=== PATIENT | male | born 1950 | race Caucasian/White ===

== ENCOUNTER 2017-12-06 08:22 | Observation (INO) ==
[2017-12-06] MEDS ORDERED: Aspirin 81 MG TAB.CHEW PO ONE (08:32)
[2017-12-06] MEDS ORDERED: Nitroglycerin 0.4 MG TAB.SUBL SL ONE (08:32)
--- NOTE | 2017-12-06 08:47 | Emergency Department Note ---
Disposition Clinical Impression: Chest pain Qualifiers: Chest pain type: precordial pain Qualified Code(s): R07.2 - Precordial pain Disposition: Admitted As Inpatient Condition: Good Chest Pain HPI - General Chief Complaint: ED General Medical Stated Complaint: Hypertension / Tachycardia Time Seen by Provider: 12/06/17 08:32 Source: patient Mode of arrival: private vehicle Limitations: no limitations Vital Signs Reviewed: Yes Nursing Notes Reviewed: Yes - History of Present Illness Pt complaint: chest pain (Like a belt around my chest that someone keeps tightening) Onset (ago): day(s) (began on Monday) Duration: intermittent Onset: during rest, during exertion Pain Location: substernal Severity: now resolved ("No pain or discomfort now") Severity scale (1-10): 0 Quality: other ("like a belt around my chest") Pain Radiation: none Improves with: rest Worsens with: exertion Context: other (Unknown. Began while walking down the [address] at work on Monday. ) Associated symptoms: Reports: diaphoresis, dyspnea, other (Elevated blood pressure readings several times a day since then, and very fatigued). Denies: nausea, vomiting, sense of impending doom, syncope, palpitations, fever, cough, leg swelling Treatments prior to arrival chest pain: none - Related Data Home Medications Medication Instructions Recorded Confirmed Aspirin 325 mg PO DAILY 05/28/15 12/06/17 Glimepiride [Amaryl] 4 mg PO DAILY 05/28/15 12/06/17 Metformin [Glucophage] 1,000 mg PO BIDWM 05/28/15 12/06/17 Docusate [Colace] 100 mg PO DAILY 06/25/15 12/06/17 Atorvastatin [Lipitor] 40 mg PO HS 06/27/17 12/06/17 Ergocalciferol (VITAMIN D2) 50,000 unit PO TH 06/27/17 12/06/17 [Drisdol (50,000 Unit)] Glucosamn/Condroitn/C/Mn/[place] 1 tab PO DAILY 06/27/17 12/06/17 [Cvs Glucosamine Chondroitin Tb] Losartan Potassium [Cozaar] 50 mg PO DAILY 06/27/17 12/06/17 Mv-Mn/FA/Vit K/Lycop/Lut/Coq10 1 tab PO DAILY 06/27/17 12/06/17 [Daily Multivitamin Capsule] [place]-3/Dha/Epa/Fish Oil [Fish Oil 1 tab PO DAILY 06/27/17 12/06/17 1,000 mg Softgel] Omeprazole [PriLOSEC] 40 mg PO DAILY 06/27/17 12/06/17 Venlafaxine HCl [Venlafaxine HCl 225 mg PO DAILY 06/27/17 12/06/17 ER] clonazePAM [Klonopin] 1 mg PO BID PRN 06/27/17 12/06/17 Allergies Allergy/AdvReac Type Severity Reaction Status Date / Time Penicillins AdvReac Rash Verified 06/27/17 11:30 All systems ED: reviewed and negative except as stated. Review of Systems: As Per HPI Constitutional: Denies: fever, chills, weakness, weight change, night sweats Eyes: Denies: vision change ENT ED: Denies: ear pain, throat pain, congestion, dysphagia Cardiovascular: Reports: as per HPI, chest pain, dyspnea on exertion. Denies: palpitations, orthopnea, edema, syncope, paroxysmal nocturnal dyspnea Respiratory: Reports: as per HPI, dyspnea. Denies: cough, wheezes, hemoptysis, stridor, sputum production Gastrointestinal: Reports: as per HPI. Denies: abdominal pain, nausea, vomiting , diarrhea Musculoskeletal: Denies: back pain, neck pain, arthralgia, myalgia Neurological: Denies: headache, weakness, numbness, paresthesias, confusion, abnormal gait, vertigo Endocrine: Reports: as per HPI, fatigue Hematological/Lymphatic: Denies: easy bleeding, easy bruising Chest Pain PMH - Past Medical History Medical history: Reports: arthritis, cancer (2001 - colon, s/p resection. In remission. scopes last year normal.), diabetes, GERD, hyperlipidemia, other Surgical history: Reports: cataract, colectomy Psychiatric history: Reports: anxiety Prior Cardiac Testing/Procedures: Stress Test, Cardiac Angiogram (10 yrs ago) - Social History Smoking Status: Never smoker Alcohol use: Reports: none Drug use: Reports: none Physical Exam - General Limitations: no limitations General appearance: alert, in no apparent distress - Head Head exam: atraumatic, normocephalic, normal inspection - Eye Eye exam: Present: normal appearance, PERRL. Absent: scleral icterus, conjunctival injection, periorbital swelling - ENT ENT exam: mucous membranes moist - Neck Neck exam: Present: normal inspection, full ROM, trachea midline, tenderness. Absent: meningismus, lymphadenopathy - Chest Chest inspection: Present: normal inspection, symmetric chest wall rise. Absent : tenderness - Respiratory Respiratory exam: Present: normal lung sounds bilaterally. Absent: respiratory distress, wheezes, stridor, accessory muscle use, prolonged expiratory phase - Cardiovascular Cardiovascular exam: Present: regular rate, normal rhythm, normal heart sounds. Absent: systolic murmur, diastolic murmur - Abdominal Exam Abdominal exam: Present: soft, Non-Tender. Absent: mass, pulsatile mass - Extremities Exam Extremities exam: Present: normal inspection, full ROM, normal capillary refill. Absent: pedal edema, calf tenderness - Neurological Exam Neurological exam: Present: alert, oriented X3, CN II-XII intact, normal gait - Psychiatric Psychiatric exam: Present: normal affect, normal mood - Skin Skin exam: Present: warm, dry, intact, normal color Course - Consultations Consultation #1: Pt accepted by the hospitalist Time: 09:58 Vital Signs Temperature 98.0 F 12/06/17 08:24 Pulse Rate 104 12/06/17 08:24 Respiratory Rate 18 12/06/17 08:24 Blood Pressure 178/90 12/06/17 08:24 O2 Sat by Pulse Oximetry 98 12/06/17 08:24 Temperature 97.8 F 12/06/17 17:20 Pulse Rate 75 12/06/17 17:20 Respiratory Rate 16 12/06/17 17:20 Blood Pressure 154/92 12/06/17 17:20 O2 Sat by Pulse Oximetry 96 12/06/17 17:20 Oxygen Delivery Oxygen Delivery Room Air Chest Pain - Medical Records Medical records reviewed: Yes I reviewed the patient's medical records. - Lab Data Lab results reviewed: Yes I reviewed the patient's lab results. Lab results narrative: Laboratory Last Values WBC 5.9 K/mcL (4.3-11.1) 12/06/17 08:39 RBC 4.46 M/mcL (4.19-5.50) 12/06/17 08:39 Hgb 13.3 g/dL (12.9-16.9) 12/06/17 08:39 Hct 41.1 % (37.5-50.1) 12/06/17 08:39 MCV 92.2 fL (83.0-100.0) 12/06/17 08:39 MCH 29.8 pg (28.0-33.3) 12/06/17 08:39 MCHC 32.4 g/dL (31.6-35.5) 12/06/17 08:39 RDW 14.0 % (11.5-14.5) 12/06/17 08:39 Plt Count 227 K/mcL (140-400) 12/06/17 08:39 MPV 9.2 fL (9.4-12.4) L 12/06/17 08:39 Immature Gran % 0.3 % (0-4) 12/06/17 08:39 Seg Neutrophils % 49.1 % 12/06/17 08:39 Lymphocytes % 36.4 % 12/06/17 08:39 Monocytes % 10.5 % 12/06/17 08:39 Eosinophils % 2.9 % 12/06/17 08:39 Basophils % 0.8 % 12/06/17 08:39 Neutrophils # 2.9 K/mcL (1.6-8.9) 12/06/17 08:39 Lymphocytes # 2.2 K/mcL (0.6-4.6) 12/06/17 08:39 Monocytes # 0.6 K/mcL (0.0-1.3) 12/06/17 08:39 Eosinophils # 0.2 K/mcL (0.0-0.6) 12/06/17 08:39 Basophils # 0.1 K/mcL (0.0-0.2) 12/06/17 08:39 Nucleated RBCs/100 WBC 0.5 /100 WBC (0) H 12/06/17 08:39 PT 10.6 Seconds (9.4-12.1) 12/06/17 08:39 INR 1.0 12/06/17 08:39 APTT 29.6 Seconds (26.0-36.0) 12/06/17 08:39 D-Dimer 592 ng/mLFEU (0-500) H 12/06/17 08:39 Sodium 142 mEq/L (136-145) 12/06/17 08:39 Potassium 4.1 mEq/L (3.5-5.1) 12/06/17 08:39 Chloride 104 mEq/L (98-107) 12/06/17 08:39 Carbon Dioxide 30 mEq/L (23-29) H 12/06/17 08:39 BUN 10 mg/dL (8-23) 12/06/17 08:39 Creatinine 0.92 mg/dL (0.70-1.30) 12/06/17 08:39 Est GFR ( Amer) > 60 (> 60) 12/06/17 08:39 Est GFR (Non-Af Amer) > 60 (> 60) 12/06/17 08:39 BUN/Creatinine Ratio 11 (6-26) 12/06/17 08:39 Glucose 147 mg/dL (70-105) H 12/06/17 08:39 Calculated Osmolality 296 (280-300) 12/06/17 08:39 Calcium 9.2 mg/dL (8.6-10.3) 12/06/17 08:39 Total Bilirubin 0.4 mg/dL (0.3-1.0) 12/06/17 08:39 Direct Bilirubin 0.1 mg/dL (0.0-0.2) 12/06/17 08:39 Indirect Bilirubin 0.3 mg/dL (0.0-1.2) 12/06/17 08:39 AST 20 Units/L (13-39) 12/06/17 08:39 ALT 23 Units/L (7-52) 12/06/17 08:39 Alkaline Phosphatase 63 Units/L (34-104) 12/06/17 08:39 Troponin I < 0.03 ng/mL (< 0.04) 12/06/17 08:39 Serum Total Protein 6.6 g/dL (6.4-8.9) 12/06/17 08:39 Albumin 4.1 g/dL (3.5-5.7) 12/06/17 08:39 Globulin 2.5 g/dL (2.4-3.5) 12/06/17 08:39 Albumin/Globulin Ratio 1.6 (1.1-2.2) 12/06/17 08:39 Lipase 64 Units/L (11-82) 12/06/17 08:39 Result diagrams: 12/06/17 08:39 12/06/17 08:39 Lab Results 12/06/17 12/06/17 12/06/17 Range/Units 08:39 08:39 08:39 WBC 5.9 (4.3-11.1) K/mcL RBC 4.46 (4.19-5.50) M/mcL Hgb 13.3 (12.9-16.9) g/dL Hct 41.1 (37.5-50.1) % MCV 92.2 (83.0-100.0) fL MCH 29.8 (28.0-33.3) pg MCHC 32.4 (31.6-35.5) g/dL RDW 14.0 (11.5-14.5) % Plt Count 227 (140-400) K/mcL MPV 9.2 L (9.4-12.4) fL Immature Gran % 0.3 (0-4) % Seg Neutrophils % 49.1 % Lymphocytes % 36.4 % Monocytes % 10.5 % Eosinophils % 2.9 % Basophils % 0.8 % Neutrophils # 2.9 (1.6-8.9) K/mcL Lymphocytes # 2.2 (0.6-4.6) K/mcL Monocytes # 0.6 (0.0-1.3) K/mcL Eosinophils # 0.2 (0.0-0.6) K/mcL Basophils # 0.1 (0.0-0.2) K/mcL Nucleated RBCs/100 WBC 0.5 H (0) /100 WBC PT 10.6 (9.4-12.1) Seconds INR 1.0 APTT 29.6 (26.0-36.0) Seconds D-Dimer 592 H (0-500) ng/mLFEU Sodium (136-145) mEq/L Potassium (3.5-5.1) mEq/L Chloride (98-107) mEq/L Carbon Dioxide (23-29) mEq/L BUN (8-23) mg/dL Creatinine (0.70-1.30) mg/dL Est GFR ( Amer) (> 60) Est GFR (Non-Af Amer) (> 60) BUN/Creatinine Ratio (6-26) Glucose (70-105) mg/dL Calculated Osmolality (280-300) Calcium (8.6-10.3) mg/dL Total Bilirubin (0.3-1.0) mg/dL Direct Bilirubin (0.0-0.2) mg/dL Indirect Bilirubin (0.0-1.2) mg/dL AST (13-39) Units/L ALT (7-52) Units/L Alkaline Phosphatase (34-104) Units/L Troponin I (< 0.04) ng/mL B-Natriuretic Peptide 9 (Less than 100) pg/mL Serum Total Protein (6.4-8.9) g/dL Albumin (3.5-5.7) g/dL Globulin (2.4-3.5) g/dL Albumin/Globulin Ratio (1.1-2.2) Lipase (11-82) Units/L // Range/Units 08:39 WBC (4.3-11.1) K/mcL RBC (4.19-5.50) M/mcL Hgb (12.9-16.9) g/dL Hct (37.5-50.1) % MCV (83.0-100.0) fL MCH (28.0-33.3) pg MCHC (31.6-35.5) g/dL RDW (11.5-14.5) % Plt Count (140-400) K/mcL MPV (9.4-12.4) fL Immature Gran % (0-4) % Seg Neutrophils % % Lymphocytes % % Monocytes % % Eosinophils % % Basophils % % Neutrophils # (1.6-8.9) K/mcL Lymphocytes # (0.6-4.6) K/mcL Monocytes # (0.0-1.3) K/mcL Eosinophils # (0.0-0.6) K/mcL Basophils # (0.0-0.2) K/mcL Nucleated RBCs/100 WBC (0) /100 WBC PT (9.4-12.1) Seconds INR APTT (26.0-36.0) Seconds D-Dimer (0-500) ng/mLFEU Sodium 142 (136-145) mEq/L Potassium 4.1 (3.5-5.1) mEq/L Chloride 104 (98-107) mEq/L Carbon Dioxide 30 H (23-29) mEq/L BUN 10 (8-23) mg/dL Creatinine 0.92 (0.70-1.30) mg/dL Est GFR ( Amer) > 60 (> 60) Est GFR (Non-Af Amer) > 60 (> 60) BUN/Creatinine Ratio 11 (6-26) Glucose 147 H (70-105) mg/dL Calculated Osmolality 296 (280-300) Calcium 9.2 (8.6-10.3) mg/dL Total Bilirubin 0.4 (0.3-1.0) mg/dL Direct Bilirubin 0.1 (0.0-0.2) mg/dL Indirect Bilirubin 0.3 (0.0-1.2) mg/dL AST 20 (13-39) Units/L ALT 23 (7-52) Units/L Alkaline Phosphatase 63 (34-104) Units/L Troponin I < 0.03 (< 0.04) ng/mL B-Natriuretic Peptide (Less than 100) pg/mL Serum Total Protein 6.6 (6.4-8.9) g/dL Albumin 4.1 (3.5-5.7) g/dL Globulin 2.5 (2.4-3.5) g/dL Albumin/Globulin Ratio 1.6 (1.1-2.2) Lipase 64 (11-82) Units/L - Radiology Data Radiology results reviewed: Yes I reviewed the patient's radiology results. Chest X-Ray 12/06/17 08:32 IMPRESSION: No acute process. D/ / Juan David Gallo MD / Juan David Gallo MD Interpreting Provider: Juan David Gallo MD - EKG Data EKG attestation: Yes I reviewed and interpreted this EKG. EKG shows normal: sinus rhythm Rate: normal Rhythm: NSR [place]/QRS: RBBB When compared to previous EKG there are: no significant changes Interpretation: unchanged when compared to prior tracing (date) - Core Measures AMI Core Measures Followed: Yes Heart Score - Score History: Highly Suspicious EKG: Non Specific repolarisation Disturbance Age: Greater than 65 Risk Factors: Equal/Greater than 3 risk factor or history of atherosclerotic disease Troponin: 1-3x normal limit HEART Score Total: 8 Attestation Statement - Attestation Attestation: Taz Nava DO have provided [id number]-nomo time during the care of this patient. Detailed review the presentation, symptoms, medical history were discussed and reviewed with the mid-level provider Apurva Osborne PA-C/COUNTER CONTROL OPERATOR. Medical intervention labs and imaging studies were reviewed in detail. See full documentation of physical exam and course of care in the mid-level provider 's note. I agree with the determined course of care, medical intervention and disposition put forth by the mid-level provider. See below documentation for changes or alterations in documentation.
[2017-12-06 09:00] LABS: Basophils # 0.1 K/mcL (0.0-0.2); Basophils % 0.8 %; Eosinophils # 0.2 K/mcL (0.0-0.6); Eosinophils % 2.9 %; Hematocrit 41.1 % (37.5-50.1); Hemoglobin 13.3 g/dL (12.9-16.9); Immature Granulocytes % 0.3 % (0-4); Lymphocytes # 2.2 K/mcL (0.6-4.6); Lymphocytes % 36.4 %; Mean Corpuscular HGB Conc 32.4 g/dL (31.6-35.5); Mean Corpuscular Hemoglobin 29.8 pg (28.0-33.3); Mean Corpuscular Volume 92.2 fL (83.0-100.0); Mean Platelet Volume 9.2 fL (9.4-12.4); Monocytes # 0.6 K/mcL (0.0-1.3); Monocytes % 10.5 %; Neutrophils # 2.9 K/mcL (1.6-8.9); Nucleated Red Blood Cells 0.5 /100 WBC (0); Platelet Count 227 K/mcL (140-400); Red Blood Count 4.46 M/mcL (4.19-5.50); Segmented Neutrophils % 49.1 %
[2017-12-06 09:04] LABS: Prothrombin Time 10.6 Seconds (9.4-12.1)
[2017-12-06 09:07] LABS: Activated Partial Thrombo Time 29.6 Seconds (26.0-36.0)
--- NOTE | 2017-12-06 09:11 | Emergency Department Note ---
Disposition Clinical Impression: Chest pain Qualifiers: Chest pain type: precordial pain Qualified Code(s): R07.2 - Precordial pain Disposition: Admitted As Inpatient Condition: Good Referrals: Sarkis Luna MD [Primary Care Provider] - Forms: ED Satisfaction Letter, Work/School Release Time of Disposition: 10:00 General Adult HPI - General Chief complaint: ED General Medical Stated complaint: Hypertension / Tachycardia Time Seen by Provider: 12/06/17 08:32 Source: patient Limitations: no limitations - History of Present Illness Pain Scale: 0 - Related Data Home Medications Medication Instructions Recorded Confirmed Aspirin 325 mg PO DAILY 05/28/15 12/06/17 Glimepiride [Amaryl] 4 mg PO DAILY 05/28/15 12/06/17 Metformin [Glucophage] 1,000 mg PO BIDWM 05/28/15 12/06/17 Docusate [Colace] 100 mg PO DAILY 06/25/15 12/06/17 Atorvastatin [Lipitor] 40 mg PO HS 06/27/17 12/06/17 Ergocalciferol (VITAMIN D2) 50,000 unit PO TH 06/27/17 12/06/17 [Drisdol (50,000 Unit)] Glucosamn/Condroitn/C/Mn/[place] 1 tab PO DAILY 06/27/17 12/06/17 [Cvs Glucosamine Chondroitin Tb] Losartan Potassium [Cozaar] 50 mg PO DAILY 06/27/17 12/06/17 Mv-Mn/FA/Vit K/Lycop/Lut/Coq10 1 tab PO DAILY 06/27/17 12/06/17 [Daily Multivitamin Capsule] [place]-3/Dha/Epa/Fish Oil [Fish Oil 1 tab PO DAILY 06/27/17 12/06/17 1,000 mg Softgel] Omeprazole [PriLOSEC] 40 mg PO DAILY 06/27/17 12/06/17 Venlafaxine HCl [Venlafaxine HCl 225 mg PO DAILY 06/27/17 12/06/17 ER] clonazePAM [Klonopin] 1 mg PO BID PRN 06/27/17 12/06/17 Allergies Allergy/AdvReac Type Severity Reaction Status Date / Time Penicillins AdvReac Rash Verified 06/27/17 11:30 Past Medical History - Past Medical History Medical history: Reports: arthritis, cancer, diabetes, GERD, hyperlipidemia, other Surgical history: Reports: cataract, colectomy Psychiatric history: Reports: anxiety - Social History Smoking Status: Never smoker Smokeless Tobacco Status: No Alcohol use: Reports: none Drug use: Reports: none Physical Exam - General Limitations: no limitations General appearance: alert, in no apparent distress Course Vital Signs Temperature 98.0 F 12/06/17 08:24 Pulse Rate 104 12/06/17 08:24 Respiratory Rate 18 12/06/17 08:24 Blood Pressure 178/90 12/06/17 08:24 O2 Sat by Pulse Oximetry 98 12/06/17 08:24 Temperature 98.0 F 12/06/17 08:24 Pulse Rate 104 12/06/17 08:24 Respiratory Rate 18 12/06/17 08:24 Blood Pressure 178/90 12/06/17 08:24 O2 Sat by Pulse Oximetry 98 12/06/17 08:24 Oxygen Delivery Oxygen Delivery Room Air Medical Decision Making - Lab Data Result diagrams: 12/06/17 08:39 12/06/17 08:39 Lab Results 12/06/17 12/06/17 12/06/17 Range/Units 08:39 08:39 08:39 WBC 5.9 (4.3-11.1) K/mcL RBC 4.46 (4.19-5.50) M/mcL Hgb 13.3 (12.9-16.9) g/dL Hct 41.1 (37.5-50.1) % MCV 92.2 (83.0-100.0) fL MCH 29.8 (28.0-33.3) pg MCHC 32.4 (31.6-35.5) g/dL RDW 14.0 (11.5-14.5) % Plt Count 227 (140-400) K/mcL MPV 9.2 L (9.4-12.4) fL Immature Gran % 0.3 (0-4) % Seg Neutrophils % 49.1 % Lymphocytes % 36.4 % Monocytes % 10.5 % Eosinophils % 2.9 % Basophils % 0.8 % Neutrophils # 2.9 (1.6-8.9) K/mcL Lymphocytes # 2.2 (0.6-4.6) K/mcL Monocytes # 0.6 (0.0-1.3) K/mcL Eosinophils # 0.2 (0.0-0.6) K/mcL Basophils # 0.1 (0.0-0.2) K/mcL Nucleated RBCs/100 WBC 0.5 H (0) /100 WBC PT 10.6 (9.4-12.1) Seconds INR 1.0 APTT 29.6 (26.0-36.0) Seconds D-Dimer 592 H (0-500) ng/mLFEU Sodium (136-145) mEq/L Potassium (3.5-5.1) mEq/L Chloride (98-107) mEq/L Carbon Dioxide (23-29) mEq/L BUN (8-23) mg/dL Creatinine (0.70-1.30) mg/dL Est GFR ( Amer) (> 60) Est GFR (Non-Af Amer) (> 60) BUN/Creatinine Ratio (6-26) Glucose (70-105) mg/dL Calculated Osmolality (280-300) Calcium (8.6-10.3) mg/dL Total Bilirubin (0.3-1.0) mg/dL Direct Bilirubin (0.0-0.2) mg/dL Indirect Bilirubin (0.0-1.2) mg/dL AST (13-39) Units/L ALT (7-52) Units/L Alkaline Phosphatase (34-104) Units/L Troponin I (< 0.04) ng/mL B-Natriuretic Peptide 9 (Less than 100) pg/mL Serum Total Protein (6.4-8.9) g/dL Albumin (3.5-5.7) g/dL Globulin (2.4-3.5) g/dL Albumin/Globulin Ratio (1.1-2.2) Lipase (11-82) Units/L 12/06/ Range/Units 08:39 WBC (4.3-11.1) K/mcL RBC (4.19-5.50) M/mcL Hgb (12.9-16.9) g/dL Hct (37.5-50.1) % MCV (83.0-100.0) fL MCH (28.0-33.3) pg MCHC (31.6-35.5) g/dL RDW (11.5-14.5) % Plt Count (140-400) K/mcL MPV (9.4-12.4) fL Immature Gran % (0-4) % Seg Neutrophils % % Lymphocytes % % Monocytes % % Eosinophils % % Basophils % % Neutrophils # (1.6-8.9) K/mcL Lymphocytes # (0.6-4.6) K/mcL Monocytes # (0.0-1.3) K/mcL Eosinophils # (0.0-0.6) K/mcL Basophils # (0.0-0.2) K/mcL Nucleated RBCs/100 WBC (0) /100 WBC PT (9.4-12.1) Seconds INR APTT (26.0-36.0) Seconds D-Dimer (0-500) ng/mLFEU Sodium 142 (136-145) mEq/L Potassium 4.1 (3.5-5.1) mEq/L Chloride 104 (98-107) mEq/L Carbon Dioxide 30 H (23-29) mEq/L BUN 10 (8-23) mg/dL Creatinine 0.92 (0.70-1.30) mg/dL Est GFR ( Amer) > 60 (> 60) Est GFR (Non-Af Amer) > 60 (> 60) BUN/Creatinine Ratio 11 (6-26) Glucose 147 H (70-105) mg/dL Calculated Osmolality 296 (280-300) Calcium 9.2 (8.6-10.3) mg/dL Total Bilirubin 0.4 (0.3-1.0) mg/dL Direct Bilirubin 0.1 (0.0-0.2) mg/dL Indirect Bilirubin 0.3 (0.0-1.2) mg/dL AST 20 (13-39) Units/L ALT 23 (7-52) Units/L Alkaline Phosphatase 63 (34-104) Units/L Troponin I < 0.03 (< 0.04) ng/mL B-Natriuretic Peptide (Less than 100) pg/mL Serum Total Protein 6.6 (6.4-8.9) g/dL Albumin 4.1 (3.5-5.7) g/dL Globulin 2.5 (2.4-3.5) g/dL Albumin/Globulin Ratio 1.6 (1.1-2.2) Lipase 64 (11-82) Units/L Attestation Statement - Attestation Attestation: I, Taz Olivia DO have provided Aieg-je-qeld time during the care of this patient. Detailed review the presentation, symptoms, medical history were discussed and reviewed with the mid-level provider Apurva Osborne PA-C/MILVIA. Medical intervention labs and imaging studies were reviewed in detail. See full documentation of physical exam and course of care in the mid-level provider 's note. I agree with the determined course of care, medical intervention and disposition put forth by the mid-level provider. See below documentation for changes or alterations in documentation. 67-year-old male presents to the emergency room with complaint of chest tightness and pain. He has noticed palpitations no lid blood pressure over the last several days. He has felt like there is been a belt around his chest pulling tight. He denies any history of pulmonary related illness or disease. He denies any cough, congestion fevers or chills. Currently his only complaint is a chest tightness but no chest pain. Patient denies any fevers chills nausea vomiting diarrhea headache or vision change. His main complaint was a concern secondary to the elevated blood pressure in the tachycardia. Patient's heart rate was initially 104. Blood pressure was elevated at 178. Patient is still having the tightness. 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 He has had angiography in the past that did not show any stenosis. Patient is concerning for cardiac related presentation. Nitroglycerin and aspirin will be given here as well as screening evaluation with CBC chemistry troponin EKG and labs. Initial EKG does show chronic right bundle max block with no acute signs of ST segment elevation or abnormality. This information was reviewed and discussed with the mid-level provider. They will complete the initial treatment course and care and then discuss disposition admission. This information was discussed with the patient by myself and he also understands this is comfortable being admitted once full workup and treatment course are completed. Lab workup to be completed this time. Symptomatically control will be completed and admission process to be established. Initial EKG does not show any acute signs of diagnostic ST segment elevation abnormality or concern for ST segment elevation myocardial infarction. Patient is otherwise stable. Disposition pending evaluation treatment course. See detailed documentation of the physical exam, medical intervention, medical decision-making and disposition in the mid-level provider's note. No critical care applied to this patient's treatment course at this time. [id number] Patient's chest tightness did not resolve with nitroglycerin. Pain medication will be given by mouth for this time. Patient's d-dimer is 592. His heart rate is still elevated slightly at 104. Patient's well's score is indeterminate this time because of his presentation symptoms of discussion was had with the hospitalist for admission but CT angiography. We will order this and transition to the floor. Patient is otherwise no distress admitted for hypertension tachycardia and acute coronary syndrome rule out at this point. Patient will not be started on anticoagulation at this point. Patient is on metformin this medication will be recommended to hold at this point. Disposition will be admission for further workup and treatment course. CT angiography to be completed either here in the emergency room or and transition to the floor. Patient does not appear to be in any distress at this point. We will continue to monitor here in the emergency room until admission process is completed
[2017-12-06 09:15] LABS: Troponin I < 0.03 ng/mL (< 0.04)
[2017-12-06 09:22] LABS: Alanine Aminotransferase 23 Units/L (7-52); Albumin 4.1 g/dL (3.5-5.7); Albumin/Globulin Ratio 1.6 (1.1-2.2); Alkaline Phosphatase 63 Units/L (34-104); Aspartate Amino Transferase 20 Units/L (13-39); BUN/Creatinine Ratio 11 (6-26); Bilirubin,Direct 0.1 mg/dL (0.0-0.2); Bilirubin,Indirect 0.3 mg/dL (0.0-1.2); Bilirubin,Total 0.4 mg/dL (0.3-1.0); Blood Urea Nitrogen 10 mg/dL (8-23); Calcium 9.2 mg/dL (8.6-10.3); Carbon Dioxide 30 mEq/L (23-29); Chloride 104 mEq/L (98-107); Globulin 2.5 g/dL (2.4-3.5); Glucose 147 mg/dL (70-105); Lipase 64 Units/L (11-82); Osmolality,Calculated 296 (280-300); Potassium 4.1 mEq/L (3.5-5.1); Sodium 142 mEq/L (136-145); Total Protein 6.6 g/dL (6.4-8.9); eGFR For African Americans > 60 (> 60); eGFR For Non-African Americans > 60 (> 60)
[2017-12-06] MEDS ORDERED: *HR* Morphine 2 MG/ML SYRINGE IVP ONE (09:57)
[2017-12-06] MEDS ORDERED: Ondansetron 4 MG/2 ML VIAL IVP ONE (09:57)
[2017-12-06] MEDS ORDERED: Isovue-370 500 ML INFUS..BTL IV ONE (09:59)
[2017-12-06] MEDS ORDERED: Acetaminophen 325 MG TABLET PO PRN (14:21)
[2017-12-06] MEDS ORDERED: Naloxone 0.4 MG/ML INJ IVP PRN (14:21)
[2017-12-06] MEDS ORDERED: *HR* HYDROcodone/Acet 5/325 mg TABLET PO PRN (14:21)
[2017-12-06] MEDS ORDERED: clonazePAM 1 MG TABLET PO PRN (14:28)
[2017-12-06] MEDS ORDERED: D5% in Water 1,000 ML IVC PRN (14:32)
[2017-12-06] MEDS ORDERED: Dextrose Gel 15 GM/37.5 ML TUBE PO PRN ×2 (14:32)
[2017-12-06] MEDS ORDERED: *HR* Dextrose 50 % in Water (Syg) 50 ML SYRINGE IVP PRN (14:32)
[2017-12-06] MEDS ORDERED: Ondansetron 4 MG/2 ML VIAL IVP PRN (14:35)
[2017-12-06] MEDS ORDERED: Nitroglycerin 0.4 MG TAB.SUBL SL PRN (14:39)
--- NOTE | 2017-12-06 15:19 | Internal Med History&Physical ---
<YumikoAmos - Last Filed: 12/06/17 15:55> Date of Encounter: 12/06/17 Time of Encounter: 14:00 Internal Medicine - H&P: HPI Chief complaint: CP Admitted From: Emergency Dept Plans for Post Hospital Care: Home History of present illness: Mr. Mackay is a 67 year old male w/PMH of arthritis, colon cancer in 2001 which is now in remission, diabetes controlled with oral anti-hyperglycemics, GERD, and HLD presents from the ED with chief complaint of chest pain that began on Monday while he was at work. Patient reports walking and becoming flushed, diaphoretic, and nauseous with intense centralized chest pressure and pain in left hand with shortness of breath. Reports BP was 194/106 at the time. No alleviating or aggravating factors. 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 Patient denies recent illness, fever, chills, nausea, vomiting, changes in vision, headache, unusual bleeding, abdominal pain , numbness, tingling, or syncope. Past Med Surg Social Fam HX - Past Medical History Source: patient, old records reviewed, obtained from family Medical history: arthritis, cancer (Colon in 2001 now in remission), diabetes, GERD, hyperlipidemia, other Psychiatric history: anxiety - Past Surgical History Surgical History: cataract (Right eye), colectomy - Social History Smoking Status: Never smoker Smokeless Tobacco Status: No Alcohol use: none Drug use: none Occupational status: employed Current living situation: Home, With Family Activity Level: Independent ambulation Recent Out of Country Travel Within the Last 8 Weeks: No Exposure or Possible Exposure to Illness During Travel: No - Family History Father Adopted: No Race: Family Member Ethnicity: Non- Living Status: Age at : 82 Cause of : Prostate cancer Hx Family Cardiac Disorders: Yes (NM x2 (age 62 and mid 70s), AAA / CHF) Hx Family Respiratory Disorders: Yes (VILLARREAL chronic, progressive) Hx Family Cancer: Yes (Prostate) Hx Family GI Disorders: Yes (Hernias, GERD) Mother Race: Family Member Ethnicity: Non- Living Status: Age at : 92 Cause of : Colon cancer Hx Family Cardiac Disorders: Yes (PAD, CVA) Hx Family Cancer: Yes (Colon) Hx Family Endocrine Disorder: Yes (DM) Internal Medicine - H&P: Meds Aspirin 325 mg PO DAILY 05/28/15 [History] Glimepiride [Amaryl] 4 mg PO DAILY 05/28/15 [History] Metformin [Glucophage] 1,000 mg PO BIDWM 05/28/15 [History] Docusate [Colace] 100 mg PO DAILY 06/25/15 [History] Atorvastatin [Lipitor] 40 mg PO HS 06/27/17 [History] Ergocalciferol (VITAMIN D2) [Drisdol (50,000 Unit)] 50,000 unit PO TH 06/27/17 [ History] Glucosamn/Condroitn/C/Mn/[place] [[facility] Glucosamine Chondroitin Tb] 1 tab PO DAILY 06/27/17 [History] Losartan Potassium [Cozaar] 50 mg PO DAILY 06/27/17 [History] Mv-Mn/FA/Vit K/Lycop/Lut/Coq10 [Daily Multivitamin Capsule] 1 tab PO DAILY 06/27 [History] [place]-3/Dha/Epa/Fish Oil [Fish Oil 1,000 mg Softgel] 1 tab PO DAILY 06/27/17 [ History] Omeprazole [PriLOSEC] 40 mg PO DAILY 06/27/17 [History] Venlafaxine HCl [Venlafaxine HCl ER] 225 mg PO DAILY 06/27/17 [History] clonazePAM [Klonopin] 1 mg PO BID PRN 06/27/17 [History] 3 Allergy/AdvReac Type Severity Reaction Status Date / Time Penicillins AdvReac Rash Verified 06/27/17 11:30 All Systems PM: A 10-system review of systems was performed and is negative for pertinent findings except as documented above in the HPI. - Constitutional Constitutional: no chills, no fever(s), no night sweats - EENT Eyes: no change in vision, no discharge, no pain, no photophobia Ears: no ear discharge, no ear pain, no tinnitus Nose, mouth and throat: no dysphagia, no nasal discharge, no neck pain, no sore throat - Breasts Breasts: as per HPI - Cardiovascular Cardiovascular ROS IM: as per HPI, diaphoresis, dyspnea, dyspnea on exertion, lightheadedness, no palpitations, no syncope - Respiratory Respiratory: dyspnea, dyspnea on exertion, no cough, no wheezing, no excessive phlegm production - Gastrointestinal Gastrointestinal: no abdominal pain, no diarrhea, no hematemesis, no hematochezia, no melena, no nausea, no vomiting - Genitourinary Genitourinary ROS male: as per HPI - Musculoskeletal Musculoskeletal ROS IM: no numbness, no tingling - Integumentary Integumentary IM: no rash, no unusual bruising - Neurological Neurological ROS: as per HPI, dizziness, no confusion, no convulsions, no focal weakness, no numbness, no tingling, no tremor(s) - Psychiatric Psychiatric: as per HPI, anxiety - Endocrine Endocrine IM: as per HPI - Hematologic/Lymphatic Hematologic/Lymphatic: no easy bruising - Allergic/Immunologic Allergic/Immunologic: as per HPI - Constitutional Vitals: Temp Pulse Resp BP Pulse Ox 97.8 F 89 16 149/94 97 12/06/17 12:44 12/06/17 12:44 12/06/17 12:44 12/06/17 12:44 12/06/17 12:44 General appearance: Present: cooperative, A&O X 3, pleasant, no acute distress, obese, answers questions appropriately - Head Head exam: Present: atraumatic, normocephalic - Eye Eye exam: Present: PERRL, conjuntiva pink, sclera anicteric Pupils: Present: PERRL - ENT ENT exam: Present: normal exam - Neck Neck exam general surgery: Present: normal inspection, supple, trachea midline. Absent: lymphadenopathy - Respiratory Respiratory exam: Present: CTAB. Absent: accessory muscle use, rales, rhonchi, wheezes - Cardiovascular Cardiovascular exam: Present: RRR, +S1, +S2. Absent: diastolic murmur, gallop, rubs, systolic murmur - GI/Abdominal GI/Abdominal exam: Present: normal bowel sounds, soft, no peritoneal signs. Absent: distended, tenderness - Rectal Rectal exam: Present: deferred - Additional comments: exam deferred. - Extremities Exam Extremities exam: Present: warm, radial pulses palpable and symmetrical. Absent : calf tenderness, cyanotic, pedal edema - Back Exam Back exam: Present: normal inspection - Neurological Exam Neurological exam: Present: CN II-XII intact, oriented X3, no focal deficits. Absent: pronater drift, facial droop, speech deficit - Psychiatric Psychiatric exam: Present: normal affect, normal mood - Skin Skin exam: Present: dry, intact Internal Med - H&P Results - Labs CBC & Chem 7: 12/06/17 08:39 12/06/17 08:39 - EKG Data EKG shows normal: sinus rhythm - EKG Data Prior EKG available for review: no EKG comments: 12/06/17 15:26 EKG dated 12/06/17 shows sinus rhythm with right bundle branch block. - Diagnostic Studies Chest x-ray Additional comments: Impressions Chest X-Ray 12/06/17 08:32 IMPRESSION: No acute process. D/ / Juan David Gallo MD / Juan David Gallo MD Interpreting Provider: Juan David Gallo MD Other Images Additional comments: Impressions Chest CTA 12/06/17 09:59 IMPRESSION: No evidence of pulmonary embolism or acute pulmonary abnormality. D/ / Adams Hermosillo MD / Adams Hermosillo MD Interpreting Provider: Adams Hermosillo MD - Assessment and plan (1) Chest pain Current Visit: Yes Status: Acute Assessment and plan: Acute CP that began Monday w/ flushing, diaphoresis, and nausea with pain in left hand and intense chest pressure. 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 No stents. Continue aspirin daily. Lipitor 80 mg now and 40 mg daily tomorrow. Nitro SL PRN. Continuous cardiac telemetry. Echocardiogram. NPO at midnight for a.m. nuclear pharm stress test. Initial troponin <0.03. Will trend. Cardiology consult ordered and discussed w/Dr. Cole d/t pts. cardiac anomaly and I appreciate the consult. Pt. discussed w/Dr. Hernandez who agrees w/plan of care. Pt. is high risk for cardiac event and further morbidity d/t current sx, previous sx ; cardiac anomaly, and risk factors of familial hx of cardiac problems (father: NM x2 and mother: PAD and CVAs), DM, HLD, and obesity. Observation. Qualifiers: Chest pain type: precordial pain Qualified Code(s): R07.2 - Precordial pain (2) Dyspnea Current Visit: Yes Status: Acute Assessment and plan: Acute SOB accompanying CP. Denies home O2 use or hx of respiratory problems. Supplemental O2 w/titration and SpO2 monitoring PRN. Qualifiers: Dyspnea type: shortness of breath Qualified Code(s): R06.02 - Shortness of breath; R06.00 - Dyspnea, unspecified; R06.01 - Orthopnea (3) Dizziness Current Visit: Yes Status: Acute Assessment and plan: Acute dizziness reported w/positional changes. Orthostatic BPs/VS. Bilateral carotid Doppler imaging. Falls/safety precautions, up with assist, bed rest w/ bathroom privileges w/assist only. (4) Diabetes Current Visit: Yes Status: Chronic Assessment and plan: Hx of chronic diabetes controlled w/oral antihyperglycemic medications. Hold oral medications and administer low-dose correction insulin sliding scale w/ hypoglycemic protocol. A1C in a.m. labs. BG checks ACHS. Qualifiers: Diabetes mellitus type: type 2 Diabetes mellitus skilled nursing insulin use: without skilled nursing use Diabetes mellitus complication status: with unspecified complications Qualified Code(s): E11.8 - Type 2 diabetes mellitus with unspecified complications (5) GERD (gastroesophageal reflux disease) Current Visit: Yes Status: Chronic Assessment and plan: Hx of chronic GERD. Zofran IVP 4 mg Q6HR PRN for N/V. Continue pts. Prilosec. Qualifiers: Esophagitis presence: esophagitis presence not specified Qualified Code(s) : K21.9 - Gastro-esophageal reflux disease without esophagitis (6) HLD (hyperlipidemia) Current Visit: Yes Status: Chronic Assessment and plan: Hx of chronic HLD. Lipid panel in a.m. labs. Continue pts. Lipitor. Qualifiers: Hyperlipidemia type: pure hypercholesterolemia Qualified Code(s): E78.00 - Pure hypercholesterolemia, unspecified; E78.0 - Pure hypercholesterolemia (7) Constipation Current Visit: Yes Status: Chronic Assessment and plan: Hx of chronic constipation. Pt. reports no BM for up to 5 days. Continue Colace and add Miralax daily. Monitor I&O. Qualifiers: Constipation type: unspecified constipation type Qualified Code(s): K59.00 - Constipation, unspecified (8) Anxiety Current Visit: Yes Status: Chronic Assessment and plan: Hx of chronic anxiety. Continue patient's venlafaxine and Klonopin. (9) DVT prophylaxis Current Visit: Yes Status: Acute Assessment and plan: Heparin 5000 units subcutaneous every 8 for DVT prophylaxis. Monitor patient for signs of bleeding. (10) HTN (hypertension) Current Visit: Yes Status: Acute Assessment and plan: Acute HTN accompanying current CP sx. Pt. reports BP usually 130s to 140s systolically. 194/106 on Monday when sx began. Continue pts. Cozaar. Will add hydralazine w/parameters if needed. Qualifiers: Hypertension type: other secondary hypertension Qualified Code(s): I15.8 - Other secondary hypertension - Time Spent With Patient Total time spent is greater than 50% in coordination of care (as documented) at patient's floor/unit and/or counseling patient: 25 - 35 minutes <Cele Hernandez - Last Filed: 12/06/17 16:21> Date of Encounter: 12/06/17 Internal Medicine - H&P: HPI History of present illness: Mr. Mackay is a 67 year old male All Systems PM: A 10-system review of systems was performed and is negative for pertinent findings except as documented above in the HPI. - Constitutional Vitals: Temp Pulse Resp BP Pulse Ox 97.8 F 89 16 149/94 97 12/06/17 12:44 12/06/17 12:44 12/06/17 12:44 12/06/17 12:44 12/06/17 12:44 Internal Med - H&P Results - Labs CBC & Chem 7: 12/06/17 08:39 12/06/17 08:39 Labs: Cardiac Enzymes 12/06/17 Range/Units 15:09 Troponin I < 0.03 (< 0.04) ng/mL - Attending Attestation Examined the patient. Reviewed the note and agreed with plan of care. Raised d -dimer but CTA with no acute PE. Cardiac ischemic workup ordered. Consulted lawn service supervisor. At present patient is chest pain-free. - Assessment and plan (1) Dyspnea Current Visit: Yes Status: Acute Qualifiers: Dyspnea type: shortness of breath Qualified Code(s): R06.02 - Shortness of breath; R06.00 - Dyspnea, unspecified; R06.01 - Orthopnea (2) Chest pain Current Visit: Yes Status: Acute Qualifiers: Chest pain type: precordial pain Qualified Code(s): R07.2 - Precordial pain (3) Diabetes Current Visit: Yes Status: Chronic Qualifiers: Diabetes mellitus type: type 2 Diabetes mellitus principal bioinformatics specialist insulin use: without principal bioinformatics specialist use Diabetes mellitus complication status: with unspecified complications Qualified Code(s): E11.8 - Type 2 diabetes mellitus with unspecified complications (4) GERD (gastroesophageal reflux disease) Current Visit: Yes Status: Chronic Qualifiers: Esophagitis presence: esophagitis presence not specified Qualified Code(s) : K21.9 - Gastro-esophageal reflux disease without esophagitis (5) HLD (hyperlipidemia) Current Visit: Yes Status: Chronic Qualifiers: Hyperlipidemia type: pure hypercholesterolemia Qualified Code(s): E78.00 - Pure hypercholesterolemia, unspecified; E78.0 - Pure hypercholesterolemia (6) Dizziness Current Visit: Yes Status: Acute (7) Constipation Current Visit: Yes Status: Chronic Qualifiers: Constipation type: unspecified constipation type Qualified Code(s): K59.00 - Constipation, unspecified (8) Anxiety Current Visit: Yes Status: Chronic (9) DVT prophylaxis Current Visit: Yes Status: Acute (10) HTN (hypertension) Current Visit: Yes Status: Acute Qualifiers: Hypertension type: other secondary hypertension Qualified Code(s): I15.8 - Other secondary hypertension - Time Spent With Patient Total time spent is greater than 50% in coordination of care (as documented) at patient's floor/unit and/or counseling patient:
[2017-12-06] MEDS: Insulin LISPRO 300 UNITS/3 ML VIAL SQ SCH (16:55)
[2017-12-06] MEDS: *HR* Heparin 5,000 UNIT/ML VIAL SQ SCH (20:29)
[2017-12-06] MEDS ORDERED: Insulin LISPRO 300 UNITS/3 ML VIAL SQ SCH (21:00)
[2017-12-07 03:42] LABS: Basophils % 0.7 %; Eosinophils # 0.2 K/mcL (0.0-0.6); Eosinophils % 2.7 %; Hematocrit 38.2 % (37.5-50.1); Hemoglobin 12.6 g/dL (12.9-16.9); Immature Granulocytes % 0.3 % (0-4); Lymphocytes # 2.4 K/mcL (0.6-4.6); Lymphocytes % 39.3 %; Mean Corpuscular Hemoglobin 29.7 pg (28.0-33.3); Mean Corpuscular Volume 90.1 fL (83.0-100.0); Mean Platelet Volume 8.7 fL (9.4-12.4); Monocytes # 0.6 K/mcL (0.0-1.3); Monocytes % 9.6 %; Neutrophils # 2.9 K/mcL (1.6-8.9); Platelet Count 198 K/mcL (140-400); Red Blood Count 4.24 M/mcL (4.19-5.50); Segmented Neutrophils % 47.4 %
[2017-12-07 04:05] LABS: Alanine Aminotransferase 21 Units/L (7-52); Albumin 3.9 g/dL (3.5-5.7); Albumin/Globulin Ratio 1.6 (1.1-2.2); Alkaline Phosphatase 63 Units/L (34-104); Aspartate Amino Transferase 18 Units/L (13-39); BUN/Creatinine Ratio 9 (6-26); Bilirubin,Total 0.4 mg/dL (0.3-1.0); Blood Urea Nitrogen 9 mg/dL (8-23); Calcium 9.3 mg/dL (8.6-10.3); Carbon Dioxide 33 mEq/L (23-29); Chloride 104 mEq/L (98-107); Chol/HDL Ratio 3.8 (0-4.9); Cholesterol 134 mg/dL (< 200); Globulin 2.4 g/dL (2.4-3.5); Glucose 90 mg/dL (70-105); HDL Cholesterol 35 mg/dL (40-59); LDL Cholesterol,Calculated 47 mg/dL (0-99); Magnesium 1.5 mg/dL (1.6-2.6); Osmolality,Calculated 292 (280-300); Potassium 4.1 mEq/L (3.5-5.1); Sodium 142 mEq/L (136-145); Total Protein 6.3 g/dL (6.4-8.9); Triglycerides 258 mg/dL (< 150); eGFR For African Americans > 60 (> 60); eGFR For Non-African Americans > 60 (> 60)
[2017-12-07] MEDS ORDERED: Regadenoson 0.4 MG/5 ML SYRINGE IVP ONE (06:04)
[2017-12-07] MEDS: *HR* Heparin 5,000 UNIT/ML VIAL SQ SCH (06:14)
[2017-12-07] MEDS ORDERED: Multivit/Ca/Min/Fe/FA 1 TAB TABLET PO SCH (09:00)
[2017-12-07] MEDS ORDERED: [UNRECOGNIZED DRUG - OTHER] PO SCH (09:00)
[2017-12-07] MEDS ORDERED: Venlafaxine XR (24 HR) 75 MG CAP.ER.24H PO SCH (09:00)
[2017-12-07] MEDS ORDERED: Aspirin 325 MG TABLET PO SCH (09:00)
[2017-12-07] MEDS ORDERED: *HR* Magnesium Sulfate 1 GM/2 ML VIAL IM STA (09:15)
[2017-12-07 09:37] LABS: Estimated Average Glucose 217 mg/dl; Hemoglobin A1C 9.2 %
[2017-12-07] MEDS: Insulin LISPRO 300 UNITS/3 ML VIAL SQ SCH ×2 (10:21→12:48)
[2017-12-07 16:00] VITALS: BP 166/90
--- NOTE | 2017-12-07 16:23 | Discharge Summary ---
- NOTES TO OUTPATIENT PROVIDER Notes to Outpatient Provider: Follow up with PCP in 2-3 days after discharge. BP can be rechecked at that time, and anti-hypertensive medications adjusted as needed. Orders not resulted at time of discharge: Pending orders 12/06/17 14:32 NM chiquita perf SPECT multi [NM] Routine 12/07/17 09:16 EV carotid duplex imaging BI Stat 12/08/17 04:00 Basic Metabolic Panel AM 0400 Complete Blood Count [HEME] AM 0400 Comprehensive Metabolic Panel AM 0400 Magnesium AM 0400 12/09/17 04:00 Complete Blood Count [HEME] AM 0400 Comprehensive Metabolic Panel AM 0400 12/10/17 04:00 Complete Blood Count [HEME] AM 0400 Comprehensive Metabolic Panel AM 0400 Date of Encounter: 12/07/17 Time of Encounter: 12:27 - Discharge Diagnosis (1) Chest pain Priority: Primary Status: Resolved Qualifiers: Chest pain type: precordial pain Qualified Code(s): R07.2 - Precordial pain (2) Dizziness Priority: Secondary Status: Resolved (3) Dyspnea Priority: Secondary Status: Resolved Qualifiers: Dyspnea type: shortness of breath Qualified Code(s): R06.02 - Shortness of breath; R06.00 - Dyspnea, unspecified; R06.01 - Orthopnea (4) HTN (hypertension) Priority: Secondary Status: Acute Qualifiers: Hypertension type: other secondary hypertension Qualified Code(s): I15.8 - Other secondary hypertension (5) Diabetes Priority: Secondary Status: Chronic Qualifiers: Diabetes mellitus type: type 2 Diabetes mellitus snf insulin use: without snf use Diabetes mellitus complication status: with unspecified complications Qualified Code(s): E11.8 - Type 2 diabetes mellitus with unspecified complications (6) GERD (gastroesophageal reflux disease) Priority: Secondary Status: Chronic Qualifiers: Esophagitis presence: esophagitis presence not specified Qualified Code(s) : K21.9 - Gastro-esophageal reflux disease without esophagitis (7) HLD (hyperlipidemia) Priority: Secondary Status: Chronic Qualifiers: Hyperlipidemia type: pure hypercholesterolemia Qualified Code(s): E78.00 - Pure hypercholesterolemia, unspecified; E78.0 - Pure hypercholesterolemia (8) Constipation Priority: Secondary Status: Chronic Qualifiers: Constipation type: unspecified constipation type Qualified Code(s): K59.00 - Constipation, unspecified (9) Anxiety Priority: Secondary Status: Chronic (10) DVT prophylaxis Priority: Secondary Status: Acute Hospital course: Mr. Mackay is a 67 year old white male admitted for ACS rule-out and dizziness/ pre-syncope. He was admitted for observation. He was placed on telemetry. Home medications were continued. Troponin trended negative x 3. ECHO was performed and showed LVEF of 60%, normal LV size and function, mild LV diastolic dysfunction, normal RV structure and function, and no valvular dysfunction. Bilateral carotid ultrasound showed non-stenotic plaque only. He received stress test that showed no ischemia or infarct. He is pain-free and back to baseline respiratory status today. He denies any more syncopal episodes. He will follow up with PCP in 2-3 days after discharge. Anti- hypertensive medication can be adjusted at that time if necessary. Patient has met maximum benefit of this hospitalization and will be discharged home in stable condition. Discharge discussed with: patient, nurse - Time Spent with Patient Total time spent providing and/or coordinating discharge services: Less than 30 minutes - Discharge Medications Home Medications: Aspirin 325 mg PO DAILY 05/28/15 [History] Glimepiride [Amaryl] 4 mg PO DAILY 05/28/15 [History] Metformin [Glucophage] 1,000 mg PO BIDWM 05/28/15 [History] Docusate [Colace] 100 mg PO DAILY 06/25/15 [History] Atorvastatin [Lipitor] 40 mg PO HS 06/27/17 [History] Ergocalciferol (VITAMIN D2) [Drisdol (50,000 Unit)] 50,000 unit PO TH 06/27/17 [ History] Glucosamn/Condroitn/C/Mn/[place] [[facility] Glucosamine Chondroitin Tb] 1 tab PO DAILY 06/27/17 [History] Losartan Potassium [Cozaar] 50 mg PO DAILY 06/27/17 [History] Mv-Mn/FA/Vit K/Lycop/Lut/Coq10 [Daily Multivitamin Capsule] 1 tab PO DAILY 06/27 [History] [place]-3/Dha/Epa/Fish Oil [Fish Oil 1,000 mg Softgel] 1 tab PO DAILY 06/27/17 [ History] Omeprazole [PriLOSEC] 40 mg PO DAILY 06/27/17 [History] Venlafaxine HCl [Venlafaxine HCl ER] 225 mg PO DAILY 06/27/17 [History] clonazePAM [Klonopin] 1 mg PO BID PRN 06/27/17 [History] Allergies/Adverse Reactions: 3 Allergy/AdvReac Type Severity Reaction Status Date / Time Penicillins AdvReac Rash Verified 06/27/17 11:30 Date of admission: 12/06/17 11:29 Primary care physician: Sarkis Luna MD Consults: 12/06/17 14:27 Consult to Pasteurizing Machine Operator [CONS] Routine Reason for SW Consult: Please assess patient for possible home needs for post -discharge planning. Discharging clinician: Pramod Colbert Anticipated date of discharge: 12/07/17 - Constitutional Vitals: Temp Pulse Resp BP Pulse Ox 97.8 F 89 20 166/90 97 12/07/17 15:54 12/07/17 15:54 12/07/17 15:54 12/07/17 15:54 12/07/17 15:54 General appearance: Present: cooperative, A&O X 3, pleasant, no acute distress, obese, answers questions appropriately - Respiratory Respiratory exam: Present: CTAB. Absent: accessory muscle use, rales, rhonchi, wheezes Additional comments: Normal WOB - Cardiovascular Cardiovascular exam: Present: RRR, +S1, +S2. Absent: diastolic murmur, gallop, rubs, systolic murmur Additional comments: No BLE edema - GI/Abdominal GI/Abdominal exam: Present: normal bowel sounds, soft. Absent: distended, hepatomegaly, mass, splenomegaly, tenderness - Neurological Exam Neurological exam: Present: alert, CN II-XII intact, oriented X3, no focal deficits, strengths equal and symetr throughout. Absent: motor sensory deficit , facial droop, speech deficit - Psychiatric Psychiatric exam: Present: normal affect, normal mood. Absent: agitated, anxious, depressed - Skin Skin exam: Present: dry, intact, warm. Absent: cyanosis, rash - Patient Status Disposition: Home, Self-Care Condition: Good Functional capacity at discharge: independent ambulation Overall status at discharge: patient is back to baseline - Discharge Instructions Follow Up With: Sarkis Luna MD [Primary Care Provider] - Additional Instructions: Follow up with PCP in 2-3 days after discharge. BP can be rechecked at that time, and anti-hypertensive medications adjusted as needed. - Diet and Activity Activity: resume usual activities as tolerated Diet: diabetic diet, low fat, low cholesterol, low salt diet, other (Cardiac Diet)
--- NOTE | 2017-12-08 19:18 | Electrocardiograph Report ---
[place] [id number] Test Date: 2017-12-06 Pat Name: Hubert Mackay Department: 102 Room: 2S3 Gender: M [employer] Agent: Minda : 1950 Requested By: Apurva Osborne Order Number: [id number] Reading MD: Sandra Rodriguez Measurements Intervals [place] Rate: 90 P: 60 ID: [id number] QRS: 59 QRSD: 132 T: 45 QT: 400 QTc: 447 Interpretive Statements SINUS RHYTHM RIGHT BUNDLE BRANCH BLOCK [120+ ms QRS DURATION, UPRIGHT V1, 40+ ms S IN I/aVL/V4/V5/V6] Electronically Signed On 12-08-2017 19:16:59 EDT by Sandra Rodriguez
== END 2017-12-07 17:12 | disposition home or self-care (01) ==
LOC: 2SOUTHHOLD 08:22 → EMEROO 08:22 → 2SOUTHHOLD 11:31
PROVIDERS: ADMIT Registered Nurse; ATTEND Internal Medicine

== ENCOUNTER 2019-04-03 07:52 | Observation (INO) ==
[2019-04-03 08:16] LABS: Basophils # 0.1 K/mcL (0.0-0.2); Basophils % 0.8 %; Eosinophils # 0.2 K/mcL (0.0-0.6); Eosinophils % 2.9 %; Hematocrit 42.7 % (37.5-50.1); Hemoglobin 13.9 g/dL (12.9-16.9); Immature Granulocytes % 0.3 % (0-4); Lymphocytes # 2.4 K/mcL (0.6-4.6); Lymphocytes % 38.5 %; Mean Corpuscular HGB Conc 32.6 g/dL (31.6-35.5); Mean Corpuscular Hemoglobin 29.4 pg (28.0-33.3); Mean Corpuscular Volume 90.3 fL (83.0-100.0); Mean Platelet Volume 8.9 fL (9.4-12.4); Monocytes # 0.9 K/mcL (0.0-1.3); Monocytes % 14.2 %; Neutrophils # 2.7 K/mcL (1.6-8.9); Platelet Count 248 K/mcL (140-400); Red Blood Count 4.73 M/mcL (4.19-5.50); Red Cell Distribution Width 14.5 % (11.5-14.5); Segmented Neutrophils % 43.3 %; White Blood Count 6.2 K/mcL (4.3-11.1)
[2019-04-03 08:34] LABS: BUN/Creatinine Ratio 14 (6-26); Blood Urea Nitrogen 15 mg/dL (8-23); Calcium 9.8 mg/dL (8.6-10.3); Carbon Dioxide 28 mEq/L (23-29); Chloride 99 mEq/L (98-107); Glucose 178 mg/dL (70-105); Magnesium 1.4 mg/dL (1.6-2.6); Osmolality,Calculated 295 (280-300); Potassium 3.9 mEq/L (3.5-5.1); Sodium 140 mEq/L (136-145); Troponin I < 0.03 ng/mL (< 0.04); eGFR For African Americans > 60 (> 60); eGFR For Non-African Americans > 60 (> 60)
[2019-04-03 08:47] LABS: Thyroid Stimulating Hormone 2.862 mcIU/mL (0.340-5.600)
[2019-04-03] MEDS ORDERED: *HR* HYDROcodone/Acet 5/325 mg TABLET PO PRN (10:08)
[2019-04-03] MEDS ORDERED: Acetaminophen 325 MG TABLET PO PRN (10:08)
[2019-04-03] MEDS ORDERED: Ondansetron 4 MG/2 ML VIAL IVP PRN (10:08)
[2019-04-03] MEDS ORDERED: Naloxone 0.4 MG/ML INJ IVP PRN (10:08)
[2019-04-03] MEDS ORDERED: clonazePAM 1 MG TABLET PO PRN (10:09)
[2019-04-03] MEDS: 0.9 % Sodium Chloride 1,000 ML IVC SCH ×2 (11:33→18:32)
[2019-04-03] MEDS ORDERED: 0.9 % Sodium Chloride 500 ML IVC ONE (12:40)
[2019-04-03] MEDS ORDERED: *HR* Dextrose 50 % in Water (Syg) 50 ML SYRINGE IVP PRN (13:57)
[2019-04-03] MEDS ORDERED: Dextrose Gel 15 GM/37.5 ML TUBE PO PRN ×2 (13:57)
[2019-04-03] MEDS ORDERED: D5% in Water 1,000 ML IVC PRN (13:57)
[2019-04-03 16:26] LABS: Estimated Average Glucose 189 mg/dl
[2019-04-03] MEDS: Insulin LISPRO 300 UNITS/3 ML VIAL SQ SCH (17:04)
[2019-04-03] MEDS ORDERED: Insulin LISPRO 300 UNITS/3 ML VIAL SQ SCH (21:00)
[2019-04-04 05:20] LABS: BUN/Creatinine Ratio 16 (6-26); Blood Urea Nitrogen 13 mg/dL (8-23); Carbon Dioxide 25 mEq/L (23-29); Chloride 104 mEq/L (98-107); Chol/HDL Ratio 4.7 (0-4.9); Cholesterol 140 mg/dL (< 200); Glucose 187 mg/dL (70-105); HDL Cholesterol 30 mg/dL (40-59); LDL Cholesterol,Calculated 61 mg/dL (0-99); Magnesium 1.6 mg/dL (1.6-2.6); Osmolality,Calculated 295 (280-300); Potassium 4.2 mEq/L (3.5-5.1); Sodium 140 mEq/L (136-145); Triglycerides 243 mg/dL (< 150); eGFR For African Americans > 60 (> 60); eGFR For Non-African Americans > 60 (> 60)
[2019-04-04] MEDS: Insulin LISPRO 300 UNITS/3 ML VIAL SQ SCH ×2 (08:22→12:22)
[2019-04-04] MEDS ORDERED: Aspirin 325 MG TABLET PO SCH (09:00)
[2019-04-04] MEDS ORDERED: Regadenoson 0.4 MG/5 ML SYRINGE IVP ONE (09:11)
[2019-04-04 15:16] VITALS: BP 138/74
== END 2019-04-04 16:26 | disposition home or self-care (01) ==
LOC: EMEROOARM 07:52 → 3BNU 07:52
PROVIDERS: ADMIT Internal Medicine Nephrology; ATTEND Internal Medicine Nephrology